=== PATIENT | female | born 1960 | race Caucasian/White ===

== ENCOUNTER 2024-03-23 19:18 | Inpatient (IN) | payer OTHER ==
[~2024-03-23] VITALS: Ht 165.1 cm; Wt 50.0 kg
--- NOTE | 2024-03-23 19:26 | ED.PDOC ---
GI ASSESSMENT HPI Comments 63 y.o female presents to the ED via EMS for a chief complaint of SOB and epigastric pain. EMS reports patient is being transported for [facility] for higher level of care. Patient went to the ED for initial complaint of SOB, was found anemic with low HGC and was given blood. Patient recently had an EGD done by Dr. Drummond which confirmed a PUD. Patient has a history of gastric bypass. No vomiting, diarrhea, fever, chills reported. 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 Automatic Notes, Medications, Allergies Allergies: Coded Allergies: NO KNOWN ALLERGIES (Unverified , 03/23/24) Information Source: Patient, Emergency Med Personnel Mode of Arrival: EMS Timing: Days Duration: Since onset Quality: Aching Vomitus: None Stool: Normal Severity: Moderate Recent Hx of: Ulcer Disease Pain Location: Epigastric Modifying Factors: Nothing Associated sign and symptoms: Abdominal Pain Past Medical History PAST MEDICAL HISTORY: PUD Surgical History (Other): gastric bypass, coronary, knee replacement RESTAURANT TEAM MEMBER History: No Pertinent RESTAURANT TEAM MEMBER History Family History Family History: Reviewed,noncontributory to illness Social History Smoker: Non-Smoker Alcohol: Denies ETOH Use Drugs: Denies Drug Use Lives In: Home Constitutional: denies: chills, diaphoresis, fatigue, fever, malaise, sweats, weakness, others EENTM: denies: blurred vision, double vision, ear bleeding, ear discharge, ear drainage, ear pain, ear ringing, eye pain, eye redness, hearing loss, mouth pain, mouth swelling, nasal discharge, nose bleeding, nose congestion, nose pain, photophobia, tearing, throat pain, throat swelling, voice changes, others Respiratory: reports: SOB at rest, shortness of breath, SOB with excertion; denies: cough, hemoptysis, orthopnea, stridor, wheezing, others Cardiovascular: denies: chest pain, dizzy spells, diaphoresis, Dyspnea on exertion, edema, irregular heart beat, left arm pain, lightheadedness, palpitations, PND, syncope, others Gastrointestinal: reports: abdominal pain; denies: abdomen distended, blood streaked bowels, constipated, diarrhea, dysphagia, difficulty swallowing, hematemesis, melena, nausea, poor appetite, poor fluid intake, rectal bleeding, rectal pain, vomiting, others Genitourinary: denies: abnormal vagina bleeding, burning, dyspareunia, dysuria, flank pain, frequency, hematuria, incontinence, pain, , vagina discharge, urgency, others Neurological: denies: dizziness, fainting, headache, left sided numbness, left sided weakness, numbness, paresthesia, pre-existing deficit, right sided numbness, right sided weakness, seizure, speech problems, tingling, tremors, weakness, others Musculoskeletal: denies: back pain, gout, joint pain, joint swelling, muscle pain, muscle stiffness, neck pain, others Integumetry: denies: bruises, change in color, change in hair/nails, dryness, laceration, lesions, lumps, rash, wounds, others Allergic/Immunocompromised: denies: Difficulty Healing, Frequent Infections, Hives, Itching, others Hematologic/Lymphatic: denies: anemia, blood clots, easy bleeding, easy b ruising, swollen glands, others Endocrine: denies: excessive hunger, excessive sweating, excessive thirst, excessive urination, flushing, intolerance to cold, intolerance to heat, unexplained weight gain, unexplained weight loss, others Psychiatric: denies: anxiety, bipolar disorder, depression, hopeless, panic disorder, schizophrenia, sleepless, suicidal, others All Other Systems: Reviewed and Negative Physical Exam General Appearance: No Apparent Distress, Normal HEENT: Normal ENT Inspection, Pharynx Normal, TMs Normal Neck: Full Range of Motion, Non-Tender, Normal, Normal Inspection Respiratory: Chest Non-Tender, Lungs Clear, No Accessory Muscle Use, No Respiratory Distress, Normal Breath Sounds Cardiovascular: No Edema, No JVD, No Murmur, No Gallop, Normal Peripheral Pulses, Regular Rate/Rhythm Breast Exam: Deferred Gastrointestinal: No Organomegaly, Non Tender, No Pulsatile Mass, Normal Bowel Sounds, Soft Genitalia: Deferred Pelvic: Deferred Rectal: Deferred Extremities: No calf tenderness, Normal capillary refill, Normal inspection, Normal range of motion, Non-tender, No pedal edema Musculoskeletal : Apperance: Normal Neurologic: Alert, home health speech therapist II-XII nml as Tested, No Motor Deficits, Normal Affect, Normal Mood, No Sensory Deficits Cerebellar Function: Normal Reflexes: Normal Skin: Dry, Normal Color, Warm Lymphatic: No Adenopathy Was a procedure done? Was a procedure done?: No GI differential Dx Differential Diagnosis: Esophageal rupture, Gastritis/PUD, Gastroenteritis, GI hemorrhage, Anemia, Esophageal Varicies X-Ray, Labs, Meds, VS Vital Signs Date Time Temp Pulse Resp B/P (MAP) Pulse Ox O2 Delivery O2 Flow Rate FiO2 03/23/24 20:05 79 15 100 Room Air* 0 21 03/23/24 20:01 143/53 03/23/24 19:42 98.4 79 15 143/53 (83) 100 98.4 03/23/24 19:18 98.3 70 18 162/70 (100) 100 Lab Test 03/23/24 20:04 Range/Units White Blood Count 3.0 L 4.4-10.8 10^3/uL Red Blood Count 2.84 L 4.0-5.20 10^6/uL Hemoglobin 7.9 L 12.2-16.2 g/dL Hematocrit 24.3 L 36.0-46.0 % Mean Corpuscular Volume 85.5 80.0-100.0 fL Mean Corpuscular Hemoglobin 27.8 L 28.0-32.0 pg Mean Corpuscular Hemoglobin Concent 32.5 32.0-36.0 g/dL Red Cell Distribution Width 16.6 H 11.8-14.3 % Platelet Count 225 140-450 10^3/uL Mean Platelet Volume 7.4 6.9-10.8 fL Neutrophils (%) (Auto) 65.5 37.0-80.0 % Lymphocytes (%) (Auto) 21.2 10.0-50.0 % Monocytes (%) (Auto) 8.4 0.0-12.0 % Eosinophils (%) (Auto) 3.4 0.0-7.0 % Basophils (%) (Auto) 1.5 0.0-2.0 % Neutrophils # (Auto) 1.9 1.6-8.6 10 ^3/uL Lymphocytes # (Auto) 0.6 0.4-5.4 10 ^3/uL Monocytes # (Auto) 0.2 0-1.3 10 ^3/uL Eosinophils # (Auto) 0.1 0-0.8 10 ^3/uL Basophils # (Auto) 0 0-0.2 10 ^3/uL Nucleated Red Blood Cells 0.0 % Prothrombin Time 10.8 9.3-11.8 sec Prothrombin Time INR 1.02 0.9-1.15 Activated Partial Thromboplast Time 26.2 24.5-34.5 SEC Sodium Level 140 136-145 mmol/L Potassium Level 3.4 L 3.5-5.1 mmol/L Chloride Level 107 98-107 mmol/L Carbon Dioxide Level 27 20-31 mmol/L Anion Gap 6 5-15 Blood Urea Nitrogen 9 9-23 mg/dL Creatinine 0.42 L 0.550-1.02 mg/dL Glomerular Filtration Rate Calc 108 >90 mL/min BUN/Creatinine Ratio 21.4 H 10.0-20.0 Serum Glucose 81 74-106 mg/dL Calcium Level 9.1 8.7-10.4 mg/dL Current Medications Medications (Trade) Dose Ordered Sig/Joanne Route Start Time Stop Time Status Last Admin Fentanyl Citrate 12.5 mcg ONCE ONCE IV 03/23/24 19:30 03/23/24 19:31 DC 03/23/24 20:01 Time of 1ST Reevaluation: 19:22 Reevaluation 1ST: Unchanged Time of 2ND Reevaluation: 21:28 Reevaluation 2ND: Unchanged Patient Education/Counseling: Diagnosis, Treatment Family Education/Counseling: No Family Present Additional Information Ordered Test:blood tests Reviewed Result:cbc, chemistry, med orders from [place] Independent Historian: Paramedics [place] YUSEF RAMOS Interpreted results: cbc, chemistry Discuss tx/ results: Patient ed notes from [place] reviewed Patient was given PPi IV dose, pepcid and octreotide at [facility] Departure 1 Departure Time of Disposition: 21:26 Impression: Primary Impression: GI bleed Qualified Codes: K92.0 - Hematemesis Additional Impression: Anemia Qualified Codes: D64.89 - Other specified anemias Disposition: ADMITTED INPATIENT Admit to: Tele Condition: Serious Critical Care Note Critical Care Time?: Yes (55 min-critical care time only) Critical care comment: due to the likelihood of patients condition suddenly deteriorating, the care requires my highest level of attention, readiness to intervene. my critical care include assessing and reassessing of patient's condition, response to treatments, ordering the appropriate tests, reviewing the results, ordering of treatments, discussing the care with medical personnel and consultants, and formulating a treatment plan, as well a reviewing various medical records. this include at least 50% face-face interaction, and does not include any procedures Stability Stability form required: No I personally scribed for BATOOL CANDELARIA MD ([email or web address]) on 03/23/24 at 19:26. Electronically submitted by Bernie Mix ([facility]). BATOOL CANDELARIA MD Mar 23, 2024 19:26
[2024-03-23] MEDS: fentaNYL CITRATE 100 MCG/2 ML VL IV ONE (20:01)
[2024-03-23 20:05] VITALS: PULSE 79; RESP 15; O2SAT 100
[2024-03-23 20:25] LABS: Basophils # (auto) 0 10 ^3/uL (0-0.2); Basophils % (auto) 1.5 % (0.0-2.0); Eosinophils # (auto) 0.1 10 ^3/uL (0-0.8); Eosinophils % (auto) 3.4 % (0.0-7.0); Hematocrit 24.3 % (36.0-46.0); Hemoglobin 7.9 g/dL (12.2-16.2); Lymphocytes # (auto) 0.6 10 ^3/uL (0.4-5.4); Lymphocytes % (auto) 21.2 % (10.0-50.0); Mean Corpuscular Hemoglobin 27.8 pg (28.0-32.0); Mean Corpuscular Hgb Conc. 32.5 g/dL (32.0-36.0); Mean Corpuscular Volume 85.5 fL (80.0-100.0); Monocytes # (auto) 0.2 10 ^3/uL (0-1.3); Monocytes % (auto) 8.4 % (0.0-12.0); Neutrophils # (auto) 1.9 10 ^3/uL (1.6-8.6); Neutrophils % (auto) 65.5 % (37.0-80.0); Platelet Count (auto) 225 10^3/uL (140-450); Red Blood Cells 2.84 10^6/uL (4.0-5.20); Red Cell Distribution Width 16.6 % (11.8-14.3)
[2024-03-23 20:35] LABS: Chloride 107 mmol/L (98-107); Sodium 140 mmol/L (136-145)
[2024-03-23 20:36] LABS: Anion Gap 6 (5-15); Carbon Dioxide 27 mmol/L (20-31)
[2024-03-23 20:37] LABS: Calcium 9.1 mg/dL (8.7-10.4); Potassium 3.4 mmol/L (3.5-5.1)
[2024-03-23 20:41] LABS: INR 1.02 (0.9-1.15); Partial Thromboplastin Time 26.2 SEC (24.5-34.5); Prothrombin Time 10.8 sec (9.3-11.8)
[2024-03-23 20:42] LABS: BUN/Creatinine Ratio 21.4 (10.0-20.0); Blood Urea Nitrogen 9 mg/dL (9-23); Glucose 81 mg/dL (74-106)
[2024-03-23] MEDS ORDERED: OCTREOTIDE ACETATE 500 MCG in SODIUM CHL 0.9% 99 ML IV SCH (22:30)
[2024-03-23] MEDS: IOHEXOL 300 MG/ML 100ML BOTTLE IJ ONE (22:37)
--- NOTE | 2024-03-23 23:01 | DVH ---
Exam: CT CT AB PEL WITH IV CON ONLY History: abdominal pain Comparison Study: None available at time of dictation. Contrast: Type of contrast: Omnipaque 300 Contrast injected: 100 mL Contrast wasted: 0 TECHNIQUE: A digital environmental engineer scientist image was obtained. During the uneventful, intravenous administration of c ontrast material, multislice data acquisition was obtained through the abdomen and pelvis. The data s et was subsequently reconstructed into axial images. Images were reviewed on a work station using a c ombination of axial and multiplanar using a variety of window levels and settings. Radiation Dose Information: CT Dose: CTDI volume is 5.07 mGy. Dose-length product is 262.25 mGy*cm FINDINGS: Lung Bases: No acute or significant lung base finding. Normal heart size. No pleural or pericardial effusion. Liver: The liver is normal in size. No focal lesions. Normal hepatic vascular enhancement. Gallbladder and Biliary Tree: Mildly distended. Questionable gallbladder polyp noted in ( series 601 images 23 and 24) Spleen: Unremarkable Pancreas: The pancreas is normal in appearance without focal lesions or abnormal enhancement. Adrenal Glands: Unremarkable Kidneys: Kidneys demonstrate normal symmetric enhancement without focal lesions, calculi or hydroneph rosis. Bladder: Unremarkable Bowel: The stomach is grossly normal in appearance. Possible distal esophageal varices Small bowel an d colon are normal in caliber and distribution. No findings to suggest bowel obstruction. Mildly gas distended small bowel measuring between 2.2 and 2.4 cm. Abnormal is greater than 3. Consider follow-u p. The appendix is not visualized; however, no secondary findings of acute appendicitis identified. Ascites: Absent Lymphadenopathy: No mesenteric, retroperitoneal or periportal lymphadenopathy. Abdominal Wall and Mesentery: Unremarkable. Vasculature: The visualized abdominal aorta is normal in size and caliber. Abdominal and pelvic vess els demonstrate normal enhancement. Pelvic Organs: Unremarkable Musculoskeletal: No aggressive focal bony lesions, acute fractures or dislocation. Soft tissues: Unremarkable. IMPRESSION: 1. No calcified gallstones. 2. Questionable distal esophageal varices. 3. Postop changes in the bowel in the left upper quadrant. All CT scans at this medical facility are performed using dose modulation techniques as appropriate t o a performed exam including the following: Automated exposure control was utilized; adjustment of th e MA and/or KV according to patient size; and use of iterative reconstruction technique.
[2024-03-23] MEDS: SODIUM CHLORIDE 0.9% 1,000 ML IV ONE (23:14)
[2024-03-23] MEDS: OCTREOTIDE ACETATE 500 MCG in SODIUM CHL 0.9% 99 ML IV SCH (23:15)
[2024-03-23] MEDS: OCTREOTIDE ACETATE 500 MCG/ML VL ONE (23:15)
[2024-03-24] MEDS: MORPHINE SULFATE INJ 2 MG/ml SYRG IV PRN (00:16)
--- NOTE | 2024-03-24 00:23 | DVHHP2 ---
Admitting Diagnosis: Abdominal pain, acute anemia, gi bleed, anxiety History of Present Illness History Source: Patient Exam Limitations: No limitations HPI Mrs. Tari Manuel is a 63 y.o female with a history of CO, hernia, pericardial effusion, pacemaker, gastric bypass, PUD. Patient is a transfer from [facility] for [facility] for GI consultation. Patient presents with a chief complaint of SOB and epigastric pain. Patient was found anemic with low Hemoglobin and was given 2 units of packed red blood cells prior to transfer at [facility]. Patient recently had an EGD done by Dr. Drummond which confirmed a PUD. Patient reports she has lost over 50 lbs in the past year , reports generalized weakness, streaks of bright red blood in stool. Patient endorses anxiety with bouts of crying. Patient reports right lower quadrant abdominal pain, denies nausea, vomiting, diarrhea, constipation, fevers, chills, chest pain, dysuria, hematuria. Patient CT abdomen/pelvis wo resulted: 1. No calcified gallstones. 2. Questionable distal esophageal varices. 3. Postop changes in the bowel in the left upper quadrant. Patient denies hematemesis. Patient admitted for further evaluation. Past Medical History Cardiac: CO Pulmonary: No pertinent Hx Central Nervous System: No pertinent Hx GI: Peptic ulcer disease Hemotology/Oncology: No pertinent Hx Hepatobiliary: No pertinent Hx Psychiatric: No pertinent Hx Musculoskeletal: No pertinent Hx Rheumotologic: No pertinent Hx Infectious Disease: No peritnent Hx ENT: No pertinent Hx Renal/: No pertinent Hx Endocrine: No pertinent Hx Dermatology: No pertinent Hx Others pericardial effusion, hernia Past Surgical History: Gastric bypass, Pacemaker Smoker: No Hx (Negative) Alocohol: None (reports quit x 3 years ago) Drugs: None Lives with: With family Domestic Violence: Neg Review of Systems Comments reports weight loss , poor appetite Constitutional: No symptom reported Ears, Nose, & Throat: No symptom reported Eyes: No symptom reported Pulmonary/Respiratory: No symptom reported Cardiovascular: No symptom reported Gastrointestinal: Abdominal Pain, Other (blood in stool) Genitourinary: No symptom reported Musculoskeletal: No symptom reported Skin: No symptom reported Psychiatric: Emotional problem (labile, anxiety), Weakness Endocrine: No symptom reported Hemotologic/Lymphatic: No symptom reported H&P Exam Vital Signs Vital Signs Date Time Temp Pulse Resp B/P (MAP) Pulse Ox O2 Delivery O2 Flow Rate FiO2 03/23/24 22:00 71 11 152/70 (97) 100 03/23/24 20:05 Room Air* 0 21 03/23/24 19:42 98.4 98.4 General Appeara: Thin Head Exam: Normal inspection Neck Exam: Normal inspection, Non-tender, Normal alignment Eye Exam: bilateral eye Normal inspection, bilateral eye PERRL, bilateral eye EOMI Ear Exam: bilateral ear Auricle normal Nasal Exam: Normal inspection Mouth: Normal Inspection Pulmonary/Respiratory: Normal inspection, Normal breath sounds, Chest non- tender, Lungs clear Cardiovascular/Chest: Normal inspection, Regular rate, Normal Rhythm Peripheral Pulses: 2+ Radial (R), 2+ Radial (L) Abdominal Exam: Normal bowel sounds, Soft Abdominal Pain Onset Location: LLQ, Epigastric Rectal Exam: Deferred Back Exam: Normal inspection Pelvic Exam: Not done MEDICAL INSTRUMENT TECHNICIAN Exam: Normal hearing, Normal speech, PERRL Motor/Sensory: Normal sensory function, Normal motor function Neuro/Mental St: Alert, Oriented Appearance: Appropriate appearance, Other (anxiety) Eye contact/ Speech: Cooperative, Avoids eye contact, Increased rate of speech, Other (anxiety) Thoughts/Psych: Normal thought pattern (labile,crying) Skin Exam: Normal inspection, Warm/dry, Pallor Labs/Xrays Labs Test 03/23/24 20:04 Range/Units White Blood Count 3.0 L 4.4-10.8 10^3/uL Red Blood Count 2.84 L 4.0-5.20 10^6/uL Hemoglobin 7.9 L 12.2-16.2 g/dL Hematocrit 24.3 L 36.0-46.0 % Mean Corpuscular Volume 85.5 80.0-100.0 fL Mean Corpuscular Hemoglobin 27.8 L 28.0-32.0 pg Mean Corpuscular Hemoglobin Concent 32.5 32.0-36.0 g/dL Red Cell Distribution Width 16.6 H 11.8-14.3 % Platelet Count 225 140-450 10^3/uL Mean Platelet Volume 7.4 6.9-10.8 fL Neutrophils (%) (Auto) 65.5 37.0-80.0 % Lymphocytes (%) (Auto) 21.2 10.0-50.0 % Monocytes (%) (Auto) 8.4 0.0-12.0 % Eosinophils (%) (Auto) 3.4 0.0-7.0 % Basophils (%) (Auto) 1.5 0.0-2.0 % Neutrophils # (Auto) 1.9 1.6-8.6 10 ^3/uL Lymphocytes # (Auto) 0.6 0.4-5.4 10 ^3/uL Monocytes # (Auto) 0.2 0-1.3 10 ^3/uL Eosinophils # (Auto) 0.1 0-0.8 10 ^3/uL Basophils # (Auto) 0 0-0.2 10 ^3/uL Nucleated Red Blood Cells 0.0 % Prothrombin Time 10.8 9.3-11.8 sec Prothrombin Time INR 1.02 0.9-1.15 Activated Partial Thromboplast Time 26.2 24.5-34.5 SEC Sodium Level 140 136-145 mmol/L Potassium Level 3.4 L 3.5-5.1 mmol/L Chloride Level 107 98-107 mmol/L Carbon Dioxide Level 27 20-31 mmol/L Anion Gap 6 5-15 Blood Urea Nitrogen 9 9-23 mg/dL Creatinine 0.42 L 0.550-1.02 mg/dL Glomerular Filtration Rate Calc 108 >90 mL/min BUN/Creatinine Ratio 21.4 H 10.0-20.0 Serum Glucose 81 74-106 mg/dL Calcium Level 9.1 8.7-10.4 mg/dL Iron Level 193 H 50-170 ug/dL Total Iron Binding Capacity 333 250-425 ug/dL Percent Iron Saturation 58.0 H 15-50 % Ferritin 6.9 L 10-291 ng/mL Troponin I High Sensitivity 5 </=34 ng/L B-Type Natriuretic Peptide 170.72 0-100 pg/mL Assessment/Plan Problem List: (1) GI bleed (2) Anemia (3) Abdominal pain (4) Anxiety about health Plan 63 yo female with history of PUD, gastric bypass, CO, Pericardial effusion, hernia, pacemaker presents as a transfer from [facility] for [facility] with abdominal pain, anemia, gi bleed. Patient was started on Sandostatin at [facility] and transfused 2 unit of PRBC;'s. Patient with hgb of 7.9 hematocrit of 24.3 on arrival to [facility]. 1. GI bleed 2. Acute anemia 3. Abdominal pain 4. Anxiety Admit Telemetry GI consultation, Sandostatin IV drip IV fluids Serial H&H every 6 h x 4 Monitor CBC, BMP Iron panel, Ferritin level Analgesic as needed /antiemetic as needed NPO Tele med psych consultation UDS Discussed all above with patient who verbalizes agreement and understanding of care plan. All questions were answered. Discussed care plan with patient nurser at bedside Giorgio BALDERAS. Discussed assessment and care plan with supervising MD. Plan discussed with: Patient, Other Code Visit Code Visit Total Time (mins): 45 Additional Comments Additional Comments Additional Comments Patient's chart is reviewed. Patient is seen and evaluated and admitted by nu rse practitioner this morning. I agree with the nurse practitioner's evaluation, documentation, assessment and care plan as outlined. ANGELINA MENDES Mar 24, 2024 00:23 NANCIE PATEL MD Mar 24, 2024 18:56
[2024-03-24 00:29] LABS: Hemoglobin 8.4 g/dL (12.2-16.2)
[2024-03-24 00:30] LABS: Hematocrit 25.6 % (36.0-46.0)
[2024-03-24] MEDS: LORazepam 2MG/ML-1ML VIAL IV ONE ×2 (00:30→06:19)
[2024-03-24 02:20] LABS: Urine Bacteria None Seen /hpf (None Seen)
[2024-03-24 02:27] LABS: Urine Blood Negative /uL (Negative); Urine Clarity Clear (Clear); Urine Color Light-Yellow (Yellow); Urine Protein, UAD Negative (Negative); Urine Specific Gravity 1.032 (1.001-1.035); Urine Urobilinogen Normal (Negative); Urine WBC <1 /hpf (0 - 5)
[2024-03-24] MEDS ORDERED: hydrALAZINE HCL 20 MG/ML VL IV PRN (02:30)
[2024-03-24 05:34] LABS: Basophils # (auto) 0 10 ^3/uL (0-0.2); Basophils % (auto) 1.8 % (0.0-2.0); Eosinophils # (auto) 0.1 10 ^3/uL (0-0.8); Eosinophils % (auto) 4.8 % (0.0-7.0); Hematocrit 25.8 % (36.0-46.0); Hemoglobin 8.6 g/dL (12.2-16.2); Lymphocytes # (auto) 0.7 10 ^3/uL (0.4-5.4); Lymphocytes % (auto) 24.9 % (10.0-50.0); Mean Corpuscular Hgb Conc. 33.4 g/dL (32.0-36.0); Mean Corpuscular Volume 83.9 fL (80.0-100.0); Monocytes # (auto) 0.3 10 ^3/uL (0-1.3); Monocytes % (auto) 10.4 % (0.0-12.0); Neutrophils # (auto) 1.6 10 ^3/uL (1.6-8.6); Neutrophils % (auto) 58.1 % (37.0-80.0); Nucleated Red Blood Cells % 0.2 %; Platelet Count (auto) 212 10^3/uL (140-450); Red Blood Cells 3.08 10^6/uL (4.0-5.20); White Blood Cell 2.7 10^3/uL (4.4-10.8)
[2024-03-24 05:43] LABS: Chloride 104 mmol/L (98-107); Potassium 3.7 mmol/L (3.5-5.1); Sodium 139 mmol/L (136-145)
[2024-03-24 05:44] LABS: Anion Gap 9 (5-15); Calcium 9.1 mg/dL (8.7-10.4); Carbon Dioxide 26 mmol/L (20-31)
[2024-03-24 05:49] LABS: BUN/Creatinine Ratio 13.6 (10.0-20.0)
[2024-03-24 05:54] LABS: Glucose 107 mg/dL (74-106)
[2024-03-24 05:55] LABS: Blood Urea Nitrogen 6 mg/dL (9-23)
[2024-03-24 06:43] LABS: Opiate Scree,Urine Neg (NEGATIVE)
[2024-03-24 06:44] LABS: Cannabinoid Screen, Urine Neg (NEGATIVE)
[2024-03-24 06:47] LABS: Amphetamine Screen, Urine Pos (NEGATIVE); Barbiturate Scree,Urine Neg (NEGATIVE); Benzodiazephine Screen, Urine Neg (NEGATIVE); Cocaine Screen, Urine Neg (NEGATIVE); Phencyclidine Screen, Urine Neg (NEGATIVE)
[2024-03-24 08:00] VITALS: PULSE 69; RESP 20; O2SAT 99
[2024-03-24] MEDS: ONDANSETRON HCL 4 MG/2 ML VIAL IV PRN (11:17)
[2024-03-24 12:02] LABS: Hemoglobin 8.4 g/dL (12.2-16.2)
[2024-03-24 12:04] LABS: Hematocrit 25.7 % (36.0-46.0)
[2024-03-24 13:51] VITALS: BP 139/65; PULSE 73; RESP 14; TEMP 98; O2SAT 99
[2024-03-24] MEDS ORDERED: D5W/SOD CHLO 0.9% 1,000 ML IV SCH (19:00)
[2024-03-24] MEDS ORDERED: PANTOPRAZOLE 40 MG/10 ML VIAL INJ IV SCH (22:00)
--- NOTE | 2024-03-25 16:55 | DVHDS2 ---
Discharge Summary Date of Admission Mar 24, 2024 at 00:06 Date of Discharge: Mar 24, 2024 Admitting Diagnosis Abdominal pain Labs/Diagnostic Data: Laboratory Results Test 03/24/24 11:52 03/24/24 05:12 03/24/24 01:24 03/24/24 00:15 Hemoglobin 8.4 g/dL (12.2-16.2) Hematocrit 25.7 % (36.0-46.0) White Blood Count 2.7 10^3/uL (4.4-10.8) Red Blood Count 3.08 10^6/uL (4.0-5.20) Mean Corpuscular Volume 83.9 fL (80.0-100.0) Mean Corpuscular Hemoglobin 28.0 pg (28.0-32.0) Mean Corpuscular Hemoglobin Concent 33.4 g/dL (32.0-36.0) Red Cell Distribution Width 17.0 % (11.8-14.3) Platelet Count 212 10^3/uL (140-450) Mean Platelet Volume 7.0 fL (6.9-10.8) Neutrophils (%) (Auto) 58.1 % (37.0-80.0) Lymphocytes (%) (Auto) 24.9 % (10.0-50.0) Monocytes (%) (Auto) 10.4 % (0.0-12.0) Eosinophils (%) (Auto) 4.8 % (0.0-7.0) Basophils (%) (Auto) 1.8 % (0.0-2.0) Neutrophils # (Auto) 1.6 10 ^3/uL (1.6-8.6) Lymphocytes # (Auto) 0.7 10 ^3/uL (0.4-5.4) Monocytes # (Auto) 0.3 10 ^3/uL (0-1.3) Eosinophils # (Auto) 0.1 10 ^3/uL (0-0.8) Basophils # (Auto) 0 10 ^3/uL (0-0.2) Nucleated Red Blood Cells 0.2 % Sodium Level 139 mmol/L (136-145) Potassium Level 3.7 mmol/L (3.5-5.1) Chloride Level 104 mmol/L (98-107) Carbon Dioxide Level 26 mmol/L (20-31) Anion Gap 9 (5-15) Blood Urea Nitrogen 6 mg/dL (9-23) Creatinine 0.44 mg/dL (0.550-1.02) Glomerular Filtration Rate Calc 107 mL/min (>90) BUN/Creatinine Ratio 13.6 (10.0-20.0) Serum Glucose 107 mg/dL (74-106) Calcium Level 9.1 mg/dL (8.7-10.4) Urine Color Light-yellow (Yellow) Urine Clarity Clear (Clear) Urine pH 7.0 (5.0-9.0) Urine Specific [place] 1.032 (1.001-1.035) Urine Protein Negative (Negative) Urine Ketones 1+ (Negative) Urine Blood Negative /uL (Negative) Urine Nitrite Negative (Negative) Urine Bilirubin Negative (Negative) Urine Urobilinogen Normal mg/dL (Negative) Urine Leukocyte Esterase Negative /uL (Negative) Urine RBC 1 /hpf (0 - 4) Urine WBC <1 /hpf (0 - 5) Urine Squamous Epithelial Cells Few /hpf (<5) Urine Bacteria None seen /hpf (None Seen) Urine Glucose Normal mg/dL (Normal) Urine Opiates Screen Neg (NEGATIVE) Urine Fentanyl Screen Neg (NEGATIVE) Urine Barbiturates Screen Neg (NEGATIVE) Urine Phencyclidine Screen Neg (NEGATIVE) Urine Amphetamines Screen Pos (NEGATIVE) Urine Benzodiazepines Screen Neg (NEGATIVE) Urine Cocaine Screen Neg (NEGATIVE) Urine Cannabinoids Screen Neg (NEGATIVE) Lactic Acid Level 0.7 mmol/L (0.4-2.0) Troponin I High Sensitivity 5 ng/L (</=34) Test 03/23/24 20:04 Prothrombin Time 10.8 sec (9.3-11.8) Prothrombin Time INR 1.02 (0.9-1.15) Activated Partial Thromboplast Time 26.2 SEC (24.5-34.5) Iron Level 193 ug/dL (50-170) Total Iron Binding Capacity 333 ug/dL (250-425) Percent Iron Saturation 58.0 % (15-50) Ferritin 6.9 ng/mL (10-291) B-Type Natriuretic Peptide 170.72 pg/mL (0-100) Other Laboratory Tests 03/24/24 11:52 03/24/24 05:12 Brief Hx & Hospital Course: Mrs. Tari Manuel is a 63 y.o female with a history of [place], hernia, pericardial effusion, pacemaker, gastric bypass, PUD. Patient is a transfer from [facility] for [facility] for GI consultation. Patient presents with a chief complaint of SOB and epigastric pain. Patient was found anemic with low Hemoglobin and was given 2 units of packed red blood cells prior to transfer at [facility]. Patient recently had an EGD done by Dr. Drummond which confirmed a PUD. Patient reports she has lost over 50 lbs in the past year , reports generalized weakness, streaks of bright red blood in stool. Patient endorses anxiety with bouts of crying. Patient reports right lower quadrant abdominal pain, denies nausea, vomiting, diarrhea, constipation, fevers, chills, chest pain, dysuria, hematuria. Patient CT abdomen/pelvis wo resulted: 1. No calcified gallstones. 2. Questionable distal esophageal varices. 3. Postop changes in the bowel in the left upper quadrant. Patient denies hematemesis. Patient admitted for further evaluation. She was admitted and started on Sandostatin drip and serial hemoglobin levels. Patient is waiting GI and tele psych consultation. However patient did not want to stay in the ER any longer and apparently decided to leave against medical advice from ER. Condition at Discharge: Undetermined Final Diagnosis/Problems List anemia r/o gi bleed Discharge Disposition: AMA Discharge Statement: "Patient was advised to return to the ER or call 911 if any headaches, dizziness, shortness of breath, chest pain, abdominal pain, bleeding, fevers, or worsening of medical condition. Patient was counseled about treatment plan, medications, possible side effects, patientverbalized understanding. All questions were answered to the best of my ability. This discharge took greater then 30 minutes in planning, reviewing documentation, counseling the patient, and discussing with other team members." ASSESSMENT ASSESSMENT Assessment NANCIE PATEL MD Mar 25, 2024 16:55
== END 2024-03-24 13:52 | disposition left against medical advice (07) | DRG 370 ==
LOC: EDBD 19:18 → ER 19:18 → TELE 03-24 00:06
PROVIDERS: ADMIT Nurse Practitioner Family; ATTEND Hospitalist
DX: I85.01 Esophageal varices with bleeding (principal); F41.9 Anxiety disorder, unspecified; D64.9 Anemia, unspecified; Z53.29 Procedure and treatment not carried out because of patient's decision for other reasons; I25.2 Old myocardial infarction; Z87.891 Personal history of nicotine dependence; Z87.11 Personal history of peptic ulcer disease; Z98.84 Bariatric surgery status
CPT/HCPCS: 36415; 80048; 80307; 81001; 83605; 84484; 85014; 85018; 85025; 99291; G0378; J2405